=== PATIENT | female | born 1945 | race Caucasian/White ===

== ENCOUNTER 2016-07-09 11:03 | Outpatient (CLI) | payer MEDICARE ==
[2016-07-09 11:53] LABS: #Basophils 0.1 thou/uL (0.0-0.2); #Eosinphils 0.7 thou/uL (0.0-0.7); #Lymphocytes 2.1 thou/uL (1.20-3.40); #Monocytes 0.7 thou/uL (0.11-0.59); #Neutrophils 5.2 thou/uL (1.40-6.50); %Eosinophils 8.3 % (0.0-10.0); %Lymphocytes 23.8 % (21.0-51.0); %Monocytes 7.9 % (0.0-10.0); Hemoglobin 12.2 g/dL (12.0-16.0); Mean Corpuscular HGB CONC 33.9 g/dL (32.0-36.0); Mean Corpuscular Hemoglobin 29.2 pg (27.0-31.0); Mean Corpuscular Volume 86.1 fl (81.0-99.0); Mean Platelet Volume 7.9 fL (7.4-10.4); Platelet Count 303 thou/uL (130-400); RBC Distribution Width 12.6 % (11.5-14.5); White Blood Cell (WBC) Count 8.7 thou/uL (4.8-10.8)
[2016-07-09 12:25] LABS: ALT (SGPT) 15 U/L (0-55); AST (SGOT) 13 U/L (5-34); Albumin 4.1 g/dL (3.4-4.8); Alkaline Phosphatase 73 U/L (40-150); Anion Gap 16 mmol/L (10-20); BUN (Urea Nitrogen) 23 mg/dL (9.8-20.1); Bilirubin, Direct 0.2 mg/dL (0.1-0.3); Bilirubin, Total 0.4 mg/dL (0.2-1.2); Calc. Creatinine Clearance 0 mL/min (70-130); Calcium 9.5 mg/dL (7.8-10.44); Carbon Dioxide 25 mmol/L (23-31); Cardiac Risk 3.1 (Less than 4.5); Chloride 104 mmol/L (98-107); Cholesterol 170 mg/dL (< 200 Desired); Estimated GFR-MDRD 55; Glucose 100 mg/dL (83-110); HDL Cholesterol 54 mg/dL (>60 Neg Risk); LDL Cholesterol, Calculated 95 mg/dL; Potassium 4.3 mmol/L (3.5-5.1); Protein, Total 6.7 g/dL (5.8-8.1); Sodium 141 mmol/L (136-145); Triglycerides 105 mg/dL (Less than 150)
== END 2016-07-09 11:04 | disposition home or self-care (01) ==
LOC: MADLABBHPM 11:03
PROVIDERS: ATTEND Family Medicine
DX: N18.3 Chronic kidney disease, stage 3 (moderate) (principal); D64.9 Anemia, unspecified; E78.5 Hyperlipidemia, unspecified
CPT/HCPCS: 36415; 80048; 80061; 80076; 85025

== ENCOUNTER 2016-10-10 10:29 | Outpatient (CLI) | payer MEDICARE ==
[2016-10-10 10:55] LABS: #Basophils 0.1 thou/uL (0.0-0.2); #Lymphocytes 3.4 thou/uL (1.20-3.40); #Neutrophils 11.4 thou/uL (1.40-6.50); %Basophils 0.6 % (0.0-1.0); %Eosinophils 0.2 % (0.0-10.0); %Lymphocytes 21.3 % (21.0-51.0); %Monocytes 6.1 % (0.0-10.0); %Neutrophils 71.9 % (42.0-75.0); Mean Corpuscular HGB CONC 33.4 g/dL (32.0-36.0); Mean Corpuscular Hemoglobin 28.7 pg (27.0-31.0); Mean Platelet Volume 8.6 fL (7.4-10.4); Platelet Count 325 thou/uL (130-400); RBC Distribution Width 12.8 % (11.5-14.5); Red Blood Cell (RBC) Count 4.17 mill/uL (4.20-5.40); White Blood Cell (WBC) Count 15.9 thou/uL (4.8-10.8)
[2016-10-10 11:16] LABS: ALT (SGPT) 15 U/L (0-55); AST (SGOT) 12 U/L (5-34); Alkaline Phosphatase 67 U/L (40-150); Anion Gap 13 mmol/L (10-20); BUN (Urea Nitrogen) 23 mg/dL (9.8-20.1); Bilirubin, Direct 0.2 mg/dL (0.1-0.3); Bilirubin, Total 0.4 mg/dL (0.2-1.2); Calc. Creatinine Clearance 0 mL/min (70-130); Calcium 9.3 mg/dL (7.8-10.44); Carbon Dioxide 25 mmol/L (23-31); Cardiac Risk 3.2 (Less than 4.5); Chloride 105 mmol/L (98-107); Cholesterol 165 mg/dL (< 200 Desired); Estimated GFR-MDRD 48; Glucose 103 mg/dL (83-110); HDL Cholesterol 51 mg/dL (>60 Neg Risk); LDL Cholesterol, Calculated 95 mg/dL; Protein, Total 6.6 g/dL (5.8-8.1); Sodium 139 mmol/L (136-145); Triglycerides 94 mg/dL (Less than 150)
== END 2016-10-10 10:30 | disposition home or self-care (01) ==
LOC: MADLABBHPM 10:29
PROVIDERS: ATTEND Family Medicine
DX: I10 Essential (primary) hypertension (principal); D64.9 Anemia, unspecified; E78.5 Hyperlipidemia, unspecified
CPT/HCPCS: 36415; 80048; 80061; 80076; 85025

== ENCOUNTER 2017-01-06 10:17 | Outpatient (CLI) | payer MEDICARE ==
[2017-01-06 10:59] LABS: #Basophils 0.1 thou/uL (0.0-0.2); #Eosinphils 0.6 thou/uL (0.0-0.7); #Lymphocytes 2.1 thou/uL (1.20-3.40); #Monocytes 0.7 thou/uL (0.11-0.59); #Neutrophils 5.3 thou/uL (1.40-6.50); %Basophils 0.9 % (0.0-1.0); %Eosinophils 7.1 % (0.0-10.0); %Lymphocytes 24.1 % (21.0-51.0); %Monocytes 8.2 % (0.0-10.0); %Neutrophils 59.7 % (42.0-75.0); Mean Corpuscular HGB CONC 32.6 g/dL (32.0-36.0); Mean Corpuscular Hemoglobin 28.5 pg (27.0-31.0); Mean Corpuscular Volume 87.4 fl (81.0-99.0); Mean Platelet Volume 8.5 fL (7.4-10.4); Platelet Count 290 thou/uL (130-400); RBC Distribution Width 12.5 % (11.5-14.5); Red Blood Cell (RBC) Count 4.21 mill/uL (4.20-5.40); White Blood Cell (WBC) Count 8.8 thou/uL (4.8-10.8)
[2017-01-06 11:04] LABS: Clarity Hazy (Clear)
[2017-01-06 11:05] LABS: Bacteria/HPF Rare-Few HPF (None Seen); Bilirubin Negative (Negative); Blood, Urine Negative (Negative); Glucose, Urine (Dipstick) Negative (Negative); Leukocyte Large (Negative); Nitrite Negative (Negative); Protein, Urine (Dipstick) Negative (Neg-Trace); RBC/HPF 0-3 HPF (0-3); Specific Gravity, Urine 1.015 (1.005-1.030); Urobilinogen 0.2 mg/dL (0.2-1.0); pH, Urine 5.5 (5.0-9.0)
[2017-01-06 11:32] LABS: ALT (SGPT) 15 U/L (8-55); AST (SGOT) 14 U/L (5-34); Albumin 3.9 g/dL (3.4-4.8); Alkaline Phosphatase 76 U/L (40-150); Anion Gap 12 mmol/L (10-20); BUN (Urea Nitrogen) 17 mg/dL (9.8-20.1); Bilirubin, Direct 0.1 mg/dL (0.1-0.3); Bilirubin, Total 0.4 mg/dL (0.2-1.2); Calc. Creatinine Clearance 0 mL/min (70-130); Calcium 9.5 mg/dL (7.8-10.44); Carbon Dioxide 27 mmol/L (23-31); Cardiac Risk 3.7 (Less than 4.5); Chloride 107 mmol/L (98-107); Cholesterol 157 mg/dl (< 200 Desired); Estimated GFR-MDRD 57; Glucose 106 mg/dL (83-110); HDL Cholesterol 43 mg/dL (>60 Neg Risk); LDL Cholesterol, Calculated 91 mg/dL; Potassium 5.1 mmol/L (3.5-5.1); Sodium 141 mmol/L (136-145); Triglycerides 113 mg/dL (Less than 150)
== END 2017-01-06 10:18 | disposition home or self-care (01) ==
LOC: MADLABBHPM 10:17
PROVIDERS: ATTEND Family Medicine
DX: E78.5 Hyperlipidemia, unspecified (principal); N18.3 Chronic kidney disease, stage 3 (moderate); D64.9 Anemia, unspecified; M17.9 Osteoarthritis of knee, unspecified
CPT/HCPCS: 36415; 80048; 80061; 80076; 81001; 84443; 85025

== ENCOUNTER 2025-04-19 11:22 | Outpatient (CLI) | payer MEDICARE | END 2025-04-19 11:23 | disposition home or self-care (01) | LOC: MADRAD 11:22 | PROVIDERS: ATTEND Family Medicine | DX: M25.511 Pain in right shoulder (principal); M19.011 Primary osteoarthritis, right shoulder ==